=== PATIENT | female | born 2000 | race Caucasian/White ===

== ENCOUNTER → 2020-12-30 16:07 | Outpatient (CLI) | payer MEDICAID, SELFPAY ==
[2020-12-31 07:56] LABS: Hepatitis B Surface Antibody Reactive
[2021-01-03 06:08] LABS: HEPATITIS B SURFACE AG Negative (Negative); Hepatitis A IgM Antibody Negative (Negative); Hepatitis B Core AB IgM Negative (Negative); QNTFERON TB Mitogen Value > 10.00 IU/mL (.); QNTFERON TB Nil Value 0.08 IU/mL (.); QNTFERON TB1+ Ag Value 0.09 IU/mL (.)
[2021-01-03 10:00] LABS: Hep C Antibodies 0.2 s/co ratio (0.0-0.9); Hepatitis A AB, Total Negative (Negative); QNTIFERON TB Positive Criteria Negative (Negative)
== END ==
PROVIDERS: PCP Nurse Practitioner Family; Referring Provider Physician Assistant Medical; Visit Provider Physician Assistant Medical
DX: L73.2 Hidradenitis suppurativa (principal); L40.0 Psoriasis vulgaris; Z79.899 Other long term (current) drug therapy
CPT/HCPCS: 36415; 80074; 86480; 86706; 86708